=== PATIENT | female | born 2000 | race Caucasian/White ===

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

== ENCOUNTER 2023-08-19 15:46 | Emergency (ER) | payer MEDICAID ==
[~2023-08-19] VITALS: Ht 165.1 cm; Wt 47.9 kg
[~2023-08-19 15:46] MED LIST changes: +ONDA4TAB6 PO
[2023-08-19 15:53] VITALS: BP 90/75; PULSE 100; TEMP 99.1; O2SAT 100
[2023-08-19] MEDS ORDERED: LIDOCAINE 1%/EPI 1:100,000 inj. 10 ML multi-dose vial IJ ONE (16:45)
[2023-08-19] MEDS ORDERED: LIDOcaine 1% W/epiNEPHrine 1:200,000 10ml vial IJ ONE (16:45)
[2023-08-19 18:00] VITALS: RESP 16
[2023-08-19] MEDS ORDERED: SULF1TAB49 PO (19:31)
== END 2023-08-19 19:38 | disposition home or self-care (01) ==
LOC: ER 15:46
DX: L02.31 Cutaneous abscess of buttock (principal)
CPT/HCPCS: 10060; 99283; A6266; A6449